=== PATIENT | male | born 1990 | race Caucasian/White ===

== ENCOUNTER 2017-07-04 21:01 | Emergency (ER) | payer BC ==
[~2017-07-04] VITALS: Ht 175.3 cm; Wt 63.5 kg
[2017-07-04] MEDS ORDERED: BUPRENORPHINE HC8 MG PO (21:40)
[2017-07-04] MEDS ORDERED: HYDROCODONE-AP1 EAC6 PO (22:18)
== END 2017-07-04 22:45 | disposition home or self-care (01) ==
LOC: ER 21:01
DX: S01.511A Laceration without foreign body of lip, initial encounter (principal); K08.89 Other specified disorders of teeth and supporting structures; F17.210 Nicotine dependence, cigarettes, uncomplicated; Z88.1 Allergy status to other antibiotic agents; Z88.5 Allergy status to narcotic agent; W22.8XXA Striking against or struck by other objects, initial encounter; Y93.89 Activity, other specified; Y92.89 Other specified places as the place of occurrence of the external cause; Y99.8 Other external cause status

== ENCOUNTER 2018-12-20 14:28 | Emergency (ER) | payer OTHER ==
[~2018-12-20] VITALS: Ht 175.3 cm; Wt 63.5 kg
[~2018-12-20 14:28] MED LIST: BUPRENORPHINE HC8 MG PO; HYDROCODONE-AP1 EAC6 PO
[2018-12-20] MEDS ORDERED: FLONASE 0.05%50 MCG NASAL (16:36)
[2018-12-20] MEDS ORDERED: TESSALON PERLE100 MG PO (16:37)
[2018-12-20 16:52] VITALS: BP 114/74
== END 2018-12-20 16:56 | disposition home or self-care (01) ==
LOC: ER 14:28
DX: J06.9 Acute upper respiratory infection, unspecified (principal); J34.89 Other specified disorders of nose and nasal sinuses; R51 Headache; F17.210 Nicotine dependence, cigarettes, uncomplicated; Z98.890 Other specified postprocedural states; Z90.49 Acquired absence of other specified parts of digestive tract; Z88.1 Allergy status to other antibiotic agents; Z88.5 Allergy status to narcotic agent